=== PATIENT | female | born 1960 | race Caucasian/White ===

== ENCOUNTER 2016-12-24 14:14 | Day surgery (SDC) | payer OTHER ==
[~2016-12-24] VITALS: Ht 160 cm; Wt 79.0 kg
[~2016-12-24 14:14] MED LIST: ACET325T51 PO; ADAL40KI SQ; ALBU18HF INH; AMLO10TA3 PO; AMT50T PO; ASCO100089 PO; CHOL400T PO; CYAN100085 INJ; HYDR50TA3 PO; MORP15TA PO; MULT-1018 PO; OXYC5CAP4 PO; VITA-230 PO
[2016-12-24] MEDS ORDERED: MethylprednisoLONE Depot 80 mg/mL Inj ONE (14:15)
[2016-12-24] MEDS ORDERED: Bupivacaine-MPF 0.25% 30 mL Inj ONE (14:15)
[2016-12-24 14:23] VITALS: BP 137/86; PULSE 110; RESP 20; O2SAT 98
[2016-12-24] MEDS ORDERED: NAPR220C11 PO (14:37)
--- NOTE | 2016-12-24 15:10 | PCM.PROC ---
Procedure Note Date of Service: December 24, 2016 Pre Procedure Diagnosis: PROCEDURE: Ultrasound guided injection of the RIGHT shoulder PRE-PROCEDURE DIAGNOSIS: Shoulder arthropathy, rotator cuff syndrome POST-PROCEDURE DIAGNOSIS: same INDICATION: 56-year-old female with RIGHT shoulder pain PERFORMED BY: Cirilo Beauchamp MD DESCRIPTION OF PROCEDURE: Patient was met in the holding area. Consent was signed, site was confirmed and all questions were answered. Patient was taken to the procedure suite and placed sitting on the procedure table. Ipsilateral arm was folded across the chest to maximally expose ultrasound view of the glenohumeral joint. Posterior aspect of shoulder was anesthetized with 1 % lidocaine in the skin and subcutaneous tissues. Area was prepped and draped in sterile fashion and a 3-1/2 inch 22-gauge Quincke spinal needle was advanced under direct ultrasound visualization into the glenohumeral joint. 40 mg Depo-Medrol with 0.5 cc of 0.25% bupivacaine was injected without incident. POST-PROCEDURE DISPOSITION: Patient was returned to the holding area in stable condition. They were discharged home when all discharge criteria were met. Evaluation/Physical Exam before discharge revealed: DISCHARGE MEDICATIONS: FOLLOW UP: Keep scheduled follow-up Cirilo Beauchamp MD cc: Cirilo Beauchamp MD December 24, 2016 15:10
== END 2016-12-24 23:59 | disposition home or self-care (01) ==
LOC: END 14:14
PROVIDERS: ATTEND Anesthesiology Pain Medicine
PROC: BP48ZZZ Ultrasonography of Right Shoulder (ICD-10-PCS; 2016-12-24)
PROC: 3E0U33Z Introduction of Anti-inflammatory into Joints, Percutaneous Approach (ICD-10-PCS; principal; 2016-12-24 14:30)
DX: M75.101 Unspecified rotator cuff tear or rupture of right shoulder, not specified as traumatic (principal)
CPT/HCPCS: 20611; J1040